=== PATIENT | male | born 1965 | race African-American/Black ===

== ENCOUNTER 2019-06-08 11:09 | Outpatient (CLI) | payer OTHER ==
--- NOTE | 2019-06-08 12:01 | RAD ---
CHEST 2 VIEWS: Date: 06/08/19 HISTORY: Disability evaluation. COMPARISON: None. FINDINGS: Lungs are clear. No pneumothorax or effusion. Cardiac silhouette and mediastinal contours within norm al limits. No acute osseous abnormality. IMPRESSION: No acute intrathoracic abnormality. POS: [facility]
--- NOTE | 2019-06-08 12:02 | RAD ---
RIGHT HIP 2 VIEWS: Date: 06/08/19 HISTORY: Disability evaluation. 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 No fracture or dislocation. IMPRESSION: Arthrosis and degenerative changes as above. POS: [facility]
== END 2019-06-08 11:10 | disposition home or self-care (01) ==
LOC: NAV RAD 11:09
PROVIDERS: ATTEND Family Medicine
DX: I50.9 Heart failure, unspecified (principal); M16.11 Unilateral primary osteoarthritis, right hip
CPT/HCPCS: 71046